=== PATIENT | male | born 1970 | race Caucasian/White ===

== ENCOUNTER 2018-05-13 19:53 | Emergency (ER) | payer OTHER ==
[~2018-05-13] VITALS: Ht 175.3 cm; Wt 95.5 kg
[2018-05-13] MEDS ORDERED: HYDR-3363 PO (20:27)
[2018-05-13] MEDS ORDERED: ZOLO100T PO (20:27)
[2018-05-13] MEDS ORDERED: PRAZ1CAP PO (20:27)
[2018-05-13] MEDS ORDERED: NORCO, ANEXSIA 5/325MG TABLET (HYDROcodone/ACETAMINOPHEN) PO ONE (20:30)
[2018-05-13] MEDS ORDERED: NORCOTAB PO (21:25)
[2018-05-13 21:54] VITALS: BP 121/77
--- NOTE | 2018-05-13 21:54 | REPVR ---
EXAM: US Left Non-Vascular Joint or Other Extremity Structure, Limited Lower Extremity EXAM DATE/TIME: 05/13/2018 9:02 PM CLINICAL HISTORY: 47 years old, male; Pain and injury or trauma; Fall; Initial encounter; Lower leg; Left; Sprain or strain; Injury date: 05/13/18; Additional info: Left calf pain; ? Tendon rupture vs muscle strain TECHNIQUE: Imaging protocol: Left US Non-Vascular Joint or Other Extremity Structure. Limited exam of the lower extremity. COMPARISON: No relevant prior studies available. FINDINGS: Soft tissues: There is no evidence of fluid collection or hematoma. There is also no definite evidence of muscle tear. If there are continued symptoms an MRI scan should be considered. IMPRESSION: No evidence of hematoma. Please see above comments. Electronically signed by: Kiran Cuellar On 05/13/2018 21:53:21 PM
== END 2018-05-13 21:55 | disposition home or self-care (01) ==
LOC: M ED 19:53
DX: S86.112A Strain of other muscle(s) and tendon(s) of posterior muscle group at lower leg level, left leg, initial encounter (principal); W18.39XA Other fall on same level, initial encounter; Y92.89 Other specified places as the place of occurrence of the external cause; F43.10 Post-traumatic stress disorder, unspecified; Z79.899 Other long term (current) drug therapy; Z88.0 Allergy status to penicillin; Z87.891 Personal history of nicotine dependence